=== PATIENT | male | born 1945 | race Caucasian/White ===

== ENCOUNTER → 2016-06-27 | Outpatient (CLI) | payer MEDICARE, OTHER | LOC: GMAL 10:35 | PROVIDERS: ATTEND Family Medicine | DX: Z12.5 Encounter for screening for malignant neoplasm of prostate (principal) ==

== ENCOUNTER → 2016-07-30 | Outpatient (CLI) | payer MEDICARE, OTHER ==
--- NOTE | 2016-07-31 14:25 | MRI ---
EXAM DESCRIPTION: Lumbar Spine w/o Contrast CLINICAL HISTORY: LOW BACK PAIN. Pain radiates into left leg. COMPARISON: MRI lumbar spine 09/14/2014 TECHNIQUE: MRI of the lumbar spine is performed according to our usual protocol with axial and sagittal multi sequence imaging. FINDINGS: The designated L5-S1 disc space is on axial T2 image 3. Again demonstrated is bilateral L5 spondylolysis with grade 1 spondylolisthesis of L5 on S1. There is up to 8 mm of anterior displacement of L5 on S1, similar to the prior exam. Vertebral body stature is maintained. There is no acute fracture or destructive osseous lesion. The conus medullaris terminates normally. There are numerous bilateral renal cysts. The spleen is enlarged up to 14 cm. A few incompletely imaged T2 hypointensities measuring 1 cm or less are present. L1-2: Disc desiccation. Otherwise no significant findings. L2-3: Disc desiccation. Mild facet hypertrophy. 2 mm posterior disc bulge. No spinal canal or neural foraminal stenosis. L3-4: Disc desiccation. Disc height is preserved. Mild facet hypertrophy with ligamentum flavum thickening. 2 mm posterior disc bulge with mild bilateral neural foraminal stenosis. The spinal canal is patent. L4-5: Disc desiccation. Disc height is preserved. Mild to moderate facet hypertrophy. 2 mm posterior disc bulge with minimal bilateral neural foraminal stenosis. The spinal canal is patent. L5-S1: Disc desiccation with severe disc narrowing. Moderate to severe facet hypertrophy. Anterolisthesis with uncovering and posterior bulging of the disc with osteophytic ridging of the endplates up to 8 mm. Severe bilateral neural foraminal stenosis. The spinal canal is patent. IMPRESSION: 1. Grossly stable disc degeneration and facet degenerative changes in the lumbar spine as described above. The findings remain most pronounced at L5-S1 where there is grade 1 spondylolisthesis with severe bilateral neural foraminal stenosis. 2. Other levels as detailed above. 3. Splenomegaly with indeterminate relative T2 hypointensities in the spleen which are incompletely evaluated. Further evaluation with ultrasound or CT with IV contrast recommended. Electronically signed by: Dustin Monroe MD 07/31/2016 2:25 PM CDT
== END | disposition home or self-care (01) ==
LOC: MRI 13:00
PROVIDERS: ATTEND Family Medicine
DX: M54.5 Low back pain (principal); M47.896 Other spondylosis, lumbar region

== ENCOUNTER 2016-08-23 12:28 | Emergency (ER) | payer MEDICARE, OTHER ==
[2016-08-23 12:54] VITALS: BP 127/73; TEMP 97.6; O2SAT 98
--- NOTE | 2016-08-23 13:32 | ED.PDOC ---
History of Present Illness - General Chief Complaint: General Stated Complaint: Rash to right arm Time Seen by Provider: 08/23/16 13:16 Source: patient, RN notes reviewed, Vital Signs reviewed Exam Limitations: no limitations - History of Present Illness Initial Comments: HE PRESENTS TO THE ED WITH A DERMATITIS THAT HAS BEEN WITH HIM FOR TWO-THREE WEEKS. EVIDENTLY HE SUSTAINED AN ACCIDENTAL PUNCTURE WOUND WITH A NAIL TO THE ANTERIOR ASPECT OF THE RIGHT FOREARM AND SINCE THEN HE HAS TWO ROUND LESIONS. HE HAS CAD AND AF AND ON ELIQUIS. HE ALSO HAS A CENTRAL SCAB THAT HE REMOVES PERIODICALLY. Improving Factors: nothing Worsening Factors: nothing Associated Symptoms: denies symptoms Allergies/Adverse Reactions: Allergies NO KNOWN ALLERGY Allergy (Verified 05/07/15 11:46) Home Medications: Ambulatory Orders Aspirin [Baby Aspirin] 81 mg PO DAILY 09/01/14 Coreg PO BID 09/01/14 Glipizide PO BID 09/01/14 Metformin HCl 1,000 mg PO DAILY 09/01/14 Metformin HCl 500 mg PO BEDTIME 09/01/14 Apixaban [Eliquis] 5 mg PO BID 05/07/15 Cephalexin Monohydrate [Keflex] 500 mg PO Q8HRS #20 cap 05/07/15 Cephalexin Monohydrate [Keflex] 500 mg PO TID #30 cap 08/23/16 Clotrimazole/Betamethasone Cre [Lotrisone Cream] 15 gm TOP BID #30 tube Review of Systems - Review of Systems Constitutional: States: no symptoms reported EENTM: States: no symptoms reported Respiratory: Denies: cough, orthopnea, short of breath Cardiology: Denies: chest pain, edema, palpitations Gastrointestinal/Abdominal: States: no symptoms reported Musculoskeletal: States: no symptoms reported Skin: States: change in color, lesions Neurological: States: no symptoms reported Endocrine: States: no symptoms reported Hematologic/Lymphatic: States: no symptoms reported Past Medical History (General) - Patient Medical History Hx Stroke: No Hx Cardiac Disorders: Yes - CAD, BYPASS, AF Hx Congestive Heart Failure: No Hx Hypertension: Yes Hx Diabetes: Yes Hx Gastroesophageal Reflux: Yes Hx MRSA: No - Vaccination History Hx Tetanus, Diphtheria Vaccination: Yes Hx Influenza Vaccination: Yes Hx Pneumococcal Vaccination: Yes - Social History Hx Tobacco Use: No Hx Alcohol Use: No Hx Substance Use: No Hx Substance Use Treatment: No Hx Depression: No Family Medical History - Family History Mother Living Status: Hx Family Stroke: Yes Physical Exam - Physical Exam General Appearance: Alert, Well Developed Eye Exam: bilateral normal Ears, Nose, Throat: hearing grossly normal Neck: non-tender, full range of motion, supple, normal inspection Respiratory: chest non-tender, lungs clear, normal breath sounds, no respiratory distress, no accessory muscle use Cardiovascular/Chest: normal peripheral pulses, regular rate, rhythm, no edema, no gallop, no JVD, no murmur Peripheral Pulses: radial,right: 2+, radial,left: 2+ Gastrointestinal/Abdominal: normal bowel sounds, non tender, no organomegaly Neurologic: no motor/sensory deficits, alert, normal mood/affect, oriented x 3 Skin Exam: warm/dry, other - THE UPPEREXTREMITIES WITH MULTIPLE BRUISING FROM THE ELIQUIS. ALSO HE HAS TWO LESIONS ON THE ANTERIOR ASPECT OF THE RIGHT FOREARM WITH A CENTRAL SCAB AND CIRCUMFERENTIAL REDNESS AND THEN HAS DARK BORDERS. ONE MEASURES 5 CM AND THE OTHER ONE IS THREE CM. Lymphatic: no adenopathy Departure - Departure Clinical Impression: Dermatitis Cellulitis Qualifiers: Site of cellulitis of extremity: upper extremity Laterality: right Time of Disposition: 13:39 Disposition: Discharge to Home or Self Care Departure Forms: ED Discharge - Pt. Copy, Patient Portal Self Enrollment Diet: resume usual diet Referrals: Taras Lentz III, MD [Primary Care Provider] - 1-2 Weeks Prescriptions: Cephalexin Monohydrate [Keflex] 500 mg PO TID #30 cap Clotrimazole/Betamethasone Cre [Lotrisone Cream] 15 gm TOP BID #30 tube Home Medications: Ambulatory Orders Aspirin [Baby Aspirin] 81 mg PO DAILY 09/01/14 Coreg PO BID 09/01/14 Glipizide PO BID 09/01/14 Metformin HCl 1,000 mg PO DAILY 09/01/14 Metformin HCl 500 mg PO BEDTIME 09/01/14 Apixaban [Eliquis] 5 mg PO BID 05/07/15 Cephalexin Monohydrate [Keflex] 500 mg PO Q8HRS #20 cap 05/07/15 Cephalexin Monohydrate [Keflex] 500 mg PO TID #30 cap 08/23/16 Clotrimazole/Betamethasone Cre [Lotrisone Cream] 15 gm TOP BID #30 tube
== END 2016-08-23 13:52 | disposition home or self-care (01) ==
LOC: ER 12:28
DX: L30.9 Dermatitis, unspecified (principal); L03.113 Cellulitis of right upper limb; I10 Essential (primary) hypertension; E11.9 Type 2 diabetes mellitus without complications; K21.9 Gastro-esophageal reflux disease without esophagitis; I25.10 Atherosclerotic heart disease of native coronary artery without angina pectoris; Z95.1 Presence of aortocoronary bypass graft; Z79.82 Long term (current) use of aspirin; Z79.899 Other long term (current) drug therapy; Z79.01 Long term (current) use of anticoagulants

== ENCOUNTER 2016-09-10 13:24 | Day surgery (SDC) | payer MEDICARE, OTHER ==
[2016-09-10] MEDS ORDERED: SODIUM CHLORIDE 0.9% 10 ML VIAL ONE (14:30)
[2016-09-10] MEDS: LIDOCAINE 1% MPF 5 ML VIAL ONE ×2 (14:42→14:43)
[2016-09-10] MEDS ORDERED: methylPREDNISolone ACETATE 80 MG/ML VIAL INJ ONE (14:43)
[2016-09-10 15:04] VITALS: BP 158/86; TEMP 97.4; O2SAT 98
== END 2016-09-10 14:55 | disposition home or self-care (01) ==
LOC: AMB 13:24 → EDSTATUS 15:15
PROVIDERS: ATTEND Anesthesiology Pain Medicine
DX: M51.16 Intervertebral disc disorders with radiculopathy, lumbar region (principal); Z79.891 Long term (current) use of opiate analgesic; Z79.84 Long term (current) use of oral hypoglycemic drugs; Z79.899 Other long term (current) drug therapy; Z79.82 Long term (current) use of aspirin
CPT/HCPCS: 62323; 76000; 80307; 80354; 80358; 80365; J1030

== ENCOUNTER → 2016-11-29 | Outpatient (CLI) | payer MEDICARE, OTHER | END | disposition home or self-care (01) | LOC: GMAL 10:51 | PROVIDERS: ATTEND Family Medicine | DX: E55.9 Vitamin D deficiency, unspecified (principal) ==

== ENCOUNTER → 2017-02-25 | Outpatient (CLI) | payer MEDICARE, OTHER | END | disposition home or self-care (01) | LOC: GMAL 11:30 | PROVIDERS: ATTEND Family Medicine | DX: E55.9 Vitamin D deficiency, unspecified (principal) ==

== ENCOUNTER → 2017-03-04 | Outpatient (CLI) | payer MEDICARE, OTHER ==
--- NOTE | 2017-03-05 08:26 | US ---
EXAM DESCRIPTION: Abdomen,Complete CLINICAL HISTORY: Splenomegaly. Splenic lesions on prior MRI. COMPARISON: MRI lumbar spine 07/30/2016 TECHNIQUE: Complete abdominal ultrasound FINDINGS: The liver is at the upper limits of normal in size at 15.1 cm. It demonstrates increased echogenicity. There is no focal hepatic mass. The gallbladder contains no sludge, calculus, or polyps. The gallbladder wall measures 2 mm. The common bile duct measures 5 mm. Visualized portions of the pancreas are unremarkable. The spleen is mildly enlarged at 14.6 cm. It demonstrates multiple hyperechoic foci measuring up to 1 cm with posterior acoustic shadowing, consistent with calcified granulomas. 2.2 cm left renal cyst. The kidneys are otherwise normal in size, shape, and echotexture. The IVC and the proximal aorta are unremarkable. IMPRESSION: 1. Mild splenomegaly with multiple calcified splenic granulomas. 2. Hepatic steatosis. Electronically signed by: Dustin Monroe MD 03/05/2017 8:25 AM [employer]
== END | disposition home or self-care (01) ==
LOC: US 10:13
PROVIDERS: ATTEND Family Medicine
DX: R16.1 Splenomegaly, not elsewhere classified (principal)

== ENCOUNTER → 2017-06-14 | Outpatient (CLI) | payer MEDICARE, OTHER ==
--- NOTE | 2017-06-17 08:08 | MRI ---
EXAM DESCRIPTION: Lumbar Spine w/o Contrast MRI. CLINICAL HISTORY: RADICULOPATHY COMPARISON: MRI lumbar spine 07/30/2016. TECHNIQUE: Multiplanar, multiple standard sequences, non contrast MRI, lumbar spine. FINDINGS: L5-S1: Marked disc space loss with diffuse Modic type II endplate reactive changes and grade 1-2 anterolisthesis. Posterior disc is partially uncovered. Mild canal narrowing. Minimal facet arthrosis and ligament hypertrophy. Bilateral L5 pars spondylolysis. Bilateral foraminal stenosis and impingement of the exiting L5 nerves more left than right. No significant change since the prior study. L4-5: Minimal disc desiccation with disc space maintained. Bilateral moderate foraminal narrowing. Posterior elements are unremarkable. Canal is patent. Stable since the prior study. L3-4: Minimal disc desiccation and disc space loss. No significant bulging into the canal. Minimal bulging into the bilateral foramina which are moderately narrowed more on the right than the left. Minimal flavum ligament hypertrophy. Facets are negative. Mild canal narrowing. Stable since the prior study. L2-3: Minimal disc desiccation. Disc space preserved. Anterior bulging. No posterior bulging. Minimal hypertrophy of the flavum ligaments abutting the thecal sac. Facets are unremarkable. Mild canal narrowing. Mild bilateral foraminal narrowing more left than right. No change since the prior study. L1-2: Minimal disc desiccation. Disc space preserved. Posterior elements unremarkable. Canal patent, mild narrowing of the bilateral foramina. Stable since the prior study. T12-L1: Normal signal in the disc with disc space unremarkable and no bulging. Posterior elements unremarkable. Canal and bilateral foramina are patent. No change since the prior study. No significant scoliosis. Paravertebral soft tissues unremarkable. Bilateral renal cysts also seen on the prior studies.. Normal marrow signal in the remaining vertebral bodies and the posterior elements. Vertebral bodies are not compressed at any level. IMPRESSION: 1. Grade 1, almost grade 2 anterolisthesis at L5-S1 with marked disc space loss and desiccation. Diffuse moderate endplate spondylosis. Bilateral foraminal stenosis and impingement of the bilateral L5 nerves. Bilateral L5 spondylolysis. Stable since the prior study. 2. No significant disc bulging at other levels. Moderate bilateral foraminal narrowing at L3-4 and L4-5 which is stable since the prior study. Minimal flavum ligament hypertrophy at some levels. 3. Bilateral renal cysts were also seen on the prior study. Electronically signed by: Kieran Hanna MD 06/17/2017 8:06 AM CDT
== END ==
LOC: MRI 09:00
PROVIDERS: ATTEND Family Medicine
DX: M54.16 Radiculopathy, lumbar region (principal); M43.17 Spondylolisthesis, lumbosacral region

== ENCOUNTER → 2017-10-16 | Outpatient (CLI) | payer MEDICARE, OTHER | LOC: GMAL 11:29 | PROVIDERS: ATTEND Family Medicine | DX: D51.3 Other dietary vitamin B12 deficiency anemia (principal); E03.8 Other specified hypothyroidism; E55.9 Vitamin D deficiency, unspecified; Z12.5 Encounter for screening for malignant neoplasm of prostate | CPT/HCPCS: 82306; 82607; 84439; 84443; 84481; G0103 ==

== ENCOUNTER → 2017-12-11 | Outpatient (CLI) | payer MEDICARE, OTHER ==
--- NOTE | 2017-12-11 13:20 | CT ---
EXAM DESCRIPTION: CTA Neck CLINICAL HISTORY: 72 years, Male, STENOSIS COMPARISON: None TECHNIQUE: CTA of the neck was performed with IV contrast including 3D reformatted images. This exam was performed according to our departmental dose-optimization program, which includes automated exposure control, adjustment of the mA and/or kV according to patient size and/or use of iterative reconstruction technique. FINDINGS: All diameter measurements and percent stenosis values in this report are based on NASCET criteria. Postoperative changes in the mediastinum are partially visualized. Mural calcifications are noted in the aortic arch without apparent aneurysm or dissection. The innominate and visualized portions of the subclavian arteries are unremarkable. There is calcified plaque in both carotid bifurcations extending into the proximal ICAs resulting in approximately 70% left-sided ICA stenosis and 30% right-sided ICA stenosis. More distal portions of the internal carotid arteries are unremarkable bilaterally. Mural calcifications are noted in the distal vertebral arteries bilaterally resulting in approximately 80% stenosis of the bilateral vertebral arteries. Emphysematous changes are noted in the lung apices. No thyroid nodule. No cervical adenopathy. Degenerative disc disease is noted at C5-6 and C6-7 with posterior osteophytic ridging at C5-6 resulting in mild central canal and moderate bilateral neuroforaminal stenosis. IMPRESSION: Calcified plaque in both carotid bifurcations extending into the proximal internal carotid arteries resulting in 70% left ICA stenosis in 30% right ICA stenosis. Calcification in the distal vertebral arteries resulting in approximately 80% bilateral vertebral artery stenosis. Emphysema. Degenerative disc disease at C5-6 and C6-7, worse at C5-6 including mild central canal and moderate bilateral neuroforaminal stenosis. Electronically signed by: Adam Roach MD 12/11/2017 1:18 PM CDT
== END ==
LOC: LAB.O 08:19
PROVIDERS: ATTEND Family Medicine
DX: I65.29 Occlusion and stenosis of unspecified carotid artery (principal); I10 Essential (primary) hypertension; J43.9 Emphysema, unspecified; M50.922 Unspecified cervical disc disorder at C5-C6 level; M50.923 Unspecified cervical disc disorder at C6-C7 level

== ENCOUNTER → 2018-11-24 | Outpatient (CLI) | payer MEDICARE | LOC: GMAL 15:06 | PROVIDERS: ATTEND Family Medicine | DX: Z12.5 Encounter for screening for malignant neoplasm of prostate (principal) ==

== ENCOUNTER → 2019-03-24 | Outpatient (CLI) | payer MEDICARE | LOC: GMAL 10:39 | PROVIDERS: ATTEND Family Medicine | DX: D51.3 Other dietary vitamin B12 deficiency anemia (principal); E03.8 Other specified hypothyroidism; E55.9 Vitamin D deficiency, unspecified; N18.2 Chronic kidney disease, stage 2 (mild); I10 Essential (primary) hypertension; E11.9 Type 2 diabetes mellitus without complications ==

== ENCOUNTER → 2019-04-30 | Outpatient (CLI) | payer MEDICARE ==
--- NOTE | 2019-05-01 17:06 | CT ---
EXAM DESCRIPTION: Abdoment/Pelvis w/o Contrast: Computed Tomography. CLINICAL HISTORY: 73 years Male Generalized abdominal pain COMPARISON: Ultrasound abdomen February 2017. TECHNIQUE: Spiral-axial scans 2.5 mm intervals through the abdomen and pelvis without oral or IV contrast. Coronal and sagittal 2.0 mm reconstructions. Total Exam DLP: 1102 mGy-cm. This exam was performed according to our departmental CT dose-optimization program which includes automated exposure control, adjustment of the mA and/or kV according to patient size and/or use of iterative reconstruction technique; to reduce radiation dose to as low as reasonably achievable (ALARA). FINDINGS: Lung bases and pleura: Pleural parenchymal scarring inferior lingula and bilateral lower lobes. More abutting the left diaphragm. Cardiomegaly and coronary artery calcifications. Liver, stomach, spleen, and adrenal glands: Long axis right hepatic lobe 17.3 cm. Minimal fatty density. Numerous calcifications in the spleen. 17 cm anteroposterior. Stomach mildly distended with fluid and gas. Adrenals are negative. Pancreas, Gallbladder, and Ducts: Gallbladder visualized. Common bile duct normal caliber. Pancreas negative. Kidneys and Ureters: Vascular calcifications in the kidneys. Circumscribed low-density masses in the bilateral kidneys with Hounsfield density less than 10. Largest cyst right kidney extends from the cortex to the fatty renal hilum. Mesentery: Unremarkable. Aorta: Diffuse atherosclerotic calcifications including the bilateral common iliac arteries which are heavily calcified. Possibly significant narrowing in these vessels. No dilation of the outer wall. Small Bowel: Normal caliber. Terminal Ileum/Cecum: Normal caliber including the appendix. No inflammatory changes. Colon: Minimal fecal and gas throughout. Minimal redundancy in the sigmoid colon with moderate fecal matter proximally but no complications. Pelvic Organs: Prostate gland abutting the base of the urinary bladder and seminal vesicles 4.6 x 2.6 cm transverse. No radiodense stones in the bladder. Spine and Bony Pelvis: Advanced spondylosis and significant disc space loss with grade 1 anterolisthesis at L5-S1. Bilateral neural foraminal stenosis. Bilateral L5 pars spondylolysis. Bilateral hip joint space narrowing. Minimal arthrosis bilateral SI joints. Abdominal Wall/Back Soft Tissues: Minimal bilateral fatty inguinal hernias larger on the left with no bowel. IMPRESSION: No free air or free fluid. No mass in the peritoneum or retroperitoneum. Steatosis of the liver with mild hepatomegaly. Constipation in the sigmoid:. No bowel obstruction. Cardiomegaly and coronary artery calcifications. Bilateral renal cysts. Electronically signed by: Kieran Hanna MD 05/01/2019 5:04 PM [employer]
== END ==
LOC: GMAL 10:46
PROVIDERS: ATTEND Family Medicine
DX: K59.00 Constipation, unspecified (principal); K76.0 Fatty (change of) liver, not elsewhere classified; I51.7 Cardiomegaly; I25.10 Atherosclerotic heart disease of native coronary artery without angina pectoris; N28.1 Cyst of kidney, acquired; N39.0 Urinary tract infection, site not specified; M25.50 Pain in unspecified joint; Z79.899 Other long term (current) drug therapy

== ENCOUNTER → 2019-07-02 | Outpatient (CLI) | payer MEDICARE | LOC: GMAL 11:35 | PROVIDERS: ATTEND Family Medicine | DX: M10.071 Idiopathic gout, right ankle and foot (principal); E11.9 Type 2 diabetes mellitus without complications; I10 Essential (primary) hypertension; E78.49 Other hyperlipidemia ==

== ENCOUNTER → 2020-02-16 | Outpatient (CLI) | payer MEDICARE | LOC: GMAL 11:18 | PROVIDERS: ATTEND Family Medicine | DX: E11.9 Type 2 diabetes mellitus without complications (principal); E78.49 Other hyperlipidemia; M10.00 Idiopathic gout, unspecified site; Z79.899 Other long term (current) drug therapy ==

== ENCOUNTER 2020-02-17 16:45 | Emergency (ER) | payer MEDICARE, OTHER ==
[2020-02-17] MEDS ORDERED: SODIUM CHLORIDE 0.9% 1000ML 1,000 ML IVS ONE (18:28)
[2020-02-17] MEDS ORDERED: DEXAMETHASONE 4 MG TAB PO ONE (19:11)
[2020-02-17] MEDS ORDERED: AZITHROMYCIN 250 MG TAB PO ONE (19:11)
[2020-02-17] MEDS ORDERED: ACETAMINOPHEN 325 MG TAB PO ONE (19:13)
--- NOTE | 2020-02-17 19:15 | ED.PDOC ---
History of Present Illness - General Chief Complaint: General Stated Complaint: "out of sorts" Time Seen by Provider: 02/17/20 16:50 Source: patient Exam Limitations: no limitations - History of Present Illness Initial Comments: Patient is a 74-year-old male presents emergency room secondary to feeling poorly in general. He has some fatigue and dizziness and reports some mild confusion. He does have a headache. He has had a mild cough and a mild runny nose. No nausea vomiting or diarrhea. No syncope or falls. No focal neurological changes. Timing/Duration: other - 48 hours Severity: moderate Improving Factors: nothing Worsening Factors: nothing Associated Symptoms: cough, headaches, loss of appetite, malaise, weakness - Generalized Allergies/Adverse Reactions: Allergies NO KNOWN ALLERGY Allergy (Verified 05/07/15 11:46) Home Medications: Ambulatory Orders Aspirin [Baby Aspirin] 81 mg PO DAILY 09/01/14 Metformin HCl [Metformin Hydrochloride] 500 mg PO BID 09/01/14 Apixaban [Eliquis] 5 mg PO BID 05/07/15 Allopurinol [Zyloprim] 100 mg PO DAILY 02/17/20 Azithromycin 500 mg PO DAILY #5 tab 02/17/20 Empagliflozin [Jardiance] 25 mg PO DAILY 02/17/20 Oxybutynin Chloride 5 mg PO DAILY 02/17/20 Pravastatin Sodium 40 mg PO DAILY 02/17/20 Tamsulosin HCl [Flomax] 0.4 mg PO DAILY 02/17/20 predniSONE [Prednisone] 20 mg PO DAILY #5 tab 02/17/20 Review of Systems - Review of Systems Constitutional: States: malaise, weakness - Generalized EENTM: States: nose congestion Respiratory: States: cough Cardiology: States: no symptoms reported Gastrointestinal/Abdominal: States: no symptoms reported Genitourinary: States: no symptoms reported Musculoskeletal: States: no symptoms reported Skin: States: no symptoms reported Neurological: States: headache Endocrine: States: no symptoms reported Hematologic/Lymphatic: States: no symptoms reported All other Systems: No Change from Baseline Past Medical History (General) - Patient Medical History Hx Stroke: No Hx Cardiac Disorders: Yes - CAD, BYPASS, AF Hx Congestive Heart Failure: No Hx Hypertension: Yes Hx Diabetes: Yes Hx Gastroesophageal Reflux: Yes Hx MRSA: No - Vaccination History Hx Tetanus, Diphtheria Vaccination: Yes Hx Influenza Vaccination: Yes Hx Pneumococcal Vaccination: Yes - Social History Hx Tobacco Use: No Hx Alcohol Use: No Hx Substance Use: No Hx Substance Use Treatment: No Hx Depression: No Family Medical History - Family History Mother Living Status: Hx Family Stroke: Yes Physical Exam - Physical Exam General Appearance: Alert, Frail, Ill Appearing Eye Exam: bilateral normal Ears, Nose, Throat: hearing grossly normal, nasal congestion Neck: full range of motion, supple Respiratory: no respiratory distress, no accessory muscle use, rhonchi - Very mild scattered Cardiovascular/Chest: normal peripheral pulses, no edema, other - Regular rate Peripheral Pulses: radial,right: 2+, radial,left: 2+ Gastrointestinal/Abdominal: non tender, soft Rectal Exam: deferred Back Exam: no CVA tenderness, no vertebral tenderness Extremity: normal range of motion, non-tender, normal inspection, no pedal edema, normal capillary refill 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 The patient is technically alert and oriented x3. No focal neurological changes that are obviously new. Skin Exam: normal color Comments: Vital Signs - 24 hr 02/17/20 02/17/20 02/17/20 16:52 17:38 17:39 Temperature 98.2 F Pulse Rate [ 80 66 71 left brachial] Respiratory 20 20 18 Rate Blood Pressure 171/99 165/85 160/79 [left brachial] O2 Sat by Pulse 96 94 L 97 Oximetry 02/17/20 02/17/20 17:40 18:00 Temperature 98.1 F Pulse Rate [ 74 59 L left brachial] Respiratory 20 20 Rate Blood Pressure 169/92 169/86 [left brachial] O2 Sat by Pulse 97 95 Oximetry Progress - Progress Progress: 02/17/20 19:17 The patient is a 74-year-old male presented to emergency room secondary to feeling poorly due to what appears to be an acute COVID-19 infecti on. Pulmonary symptoms appear to be minimal at this point however the patient is a diabetic and elderly and thus at high risk of deterioration. He will receive the monoclonal antibody infusion. He is also going to be placed on low- dose prednisone and azithromycin for the next week. He does need to follow his blood sugars closely and keep himself well-hydrated. No evidence of hypoxia or respiratory distress. The patient needs to follow back up with his primary care doctor within a week at least by phone. ER warnings are given. He obviously needs to isolate. [email or web address] bruno [id number] - Results/Orders Results/Orders: 02/17/20 16:58 Telemetry .CONTINUOUS Vital Signs-Tilt PRN Chest,1 View [RAD] Stat 02/17/20 17:00 EKG STAT 02/17/20 17:10 PSA,TOTAL MCR SCREEN Stat EKG shows atrial fibrillation at a rate controlled at 70 bpm. Q waves in inferior leads. Criteria for LVH is present. Normal QT interval. Mildly widened QRS complex. Difficult to interpret otherwise. No definitive ST segment elevation or marked depression. Nonspecific T wave changes. Laboratory Results - last 24 hr 02/17/20 02/17/20 02/17/20 17:10 17:10 17:10 WBC 4.8 RBC 5.11 Hgb 15.9 Hct 45.4 MCV 88.9 MCH 31.2 H MCHC 35.1 RDW 13.7 Plt Count 95 L MPV 8.1 Absolute Neuts (auto) 3.90 Absolute Lymphs (auto) 0.50 L Absolute Monos (auto) 0.30 Absolute Eos (auto) 0.00 Absolute Basos (auto) 0.00 Neutrophils % 82.1 H Lymphocytes % 10.8 L Monocytes % 7.0 Eosinophils % 0.0 L Basophils % 0.1 PT 10.6 INR 1.07 PTT (SP) 34.7 H D-Dimer, Quantitative 293.0 Sodium 134 L Potassium 3.6 Chloride 99 L Carbon Dioxide 21 Anion Gap 17.6 BUN 21 H Creatinine 1.18 BUN/Creatinine Ratio 17.8 Random Glucose 163 H Serum Osmolality 274.8 L Lactic Acid Calcium 8.2 L Magnesium 1.8 Total Bilirubin 1.2 H AST 25 ALT 26 Alkaline Phosphatase 69 Creatine Kinase 35 L CK-MB (CK-2) 0.6 CK-MB (CK-2) % Not Reportable Troponin I 0.03 B-Natriuretic Peptide 287.0 H* Serum Total Protein 8.2 Albumin 4.3 Globulin 3.9 H Albumin/Globulin Ratio 1.1 Amylase 53 TSH 1.54 Urine Color Urine Appearance Urine pH Ur Specific Cisne Urine Protein Urine Glucose (UA) Urine Ketones Urine Blood Urine Nitrite Urine Bilirubin Urine Urobilinogen Ur Leukocyte Esterase Urine RBC Urine WBC Ur Epithelial Cells Urine Bacteria 02/17/20 02/17/20 17:10 17:43 WBC RBC Hgb Hct MCV MCH MCHC RDW Plt Count MPV Absolute Neuts (auto) Absolute Lymphs (auto) Absolute Monos (auto) Absolute Eos (auto) Absolute Basos (auto) Neutrophils % Lymphocytes % Monocytes % Eosinophils % Basophils % PT INR PTT (SP) D-Dimer, Quantitative Sodium Potassium Chloride Carbon Dioxide Anion Gap BUN Creatinine BUN/Creatinine Ratio Random Glucose Serum Osmolality Lactic Acid 1.3 Calcium Magnesium Total Bilirubin AST ALT Alkaline Phosphatase Creatine Kinase CK-MB (CK-2) CK-MB (CK-2) % Troponin I B-Natriuretic Peptide Serum Total Protein Albumin Globulin Albumin/Globulin Ratio Amylase TSH Urine Color Yellow Urine Appearance Clear Urine pH 5.0 Ur Specific Cisne 1.025 Urine Protein 100 H Urine Glucose (UA) >=1000 H Urine Ketones 40 H Urine Blood Small H Urine Nitrite Negative Urine Bilirubin Negative Urine Urobilinogen 0.2 Ur Leukocyte Esterase Negative Urine RBC 0-1 Urine WBC 0-1 Ur Epithelial Cells 0-1 Urine Bacteria Rare Chest x-ray shows no acute pathology. Departure - Departure Clinical Impression: COVID-19 virus infection Disposition: Discharge to Home or Self Care Condition: Fair Departure Forms: ED Discharge - Pt. Copy, Patient Portal Self Enrollment Instructions: Coronavirus Disease 2019 (COVID-19) Diet: diabetic diet Activity: increase activity as tolerated Referrals: Taras Lentz III, MD [Primary Care Provider] - 1-2 Weeks Prescriptions: Azithromycin 500 mg PO DAILY #5 tab predniSONE [Prednisone] 20 mg PO DAILY #5 tab Home Medications: Ambulatory Orders Aspirin [Baby Aspirin] 81 mg PO DAILY 09/01/14 Metformin HCl [Metformin Hydrochloride] 500 mg PO BID 09/01/14 Apixaban [Eliquis] 5 mg PO BID 05/07/15 Allopurinol [Zyloprim] 100 mg PO DAILY 02/17/20 Azithromycin 500 mg PO DAILY #5 tab 02/17/20 Empagliflozin [Jardiance] 25 mg PO DAILY 02/17/20 Oxybutynin Chloride 5 mg PO DAILY 02/17/20 Pravastatin Sodium 40 mg PO DAILY 02/17/20 Tamsulosin HCl [Flomax] 0.4 mg PO DAILY 02/17/20 predniSONE [Prednisone] 20 mg PO DAILY #5 tab 02/17/20 Additional Instructions: The patient is a 74-year-old male presented to emergency room secondary to feeling poorly due to what appears to be an acute COVID-19 infection. Pulmonary symptoms appear to be minimal at this point however the patient is a diabetic and elderly and thus at high risk of deterioration. He will receive the monoclonal antibody infusion. He is also going to be placed on low-dose prednisone and azithromycin for the next week. He does need to follow his blood sugars closely and keep himself well-hydrated. No evidence of hypoxia or respiratory distress. The patient needs to follow back up with his primary care doctor within a week at least by phone. ER warnings are given. He obviously needs to isolate.
[2020-02-17] MEDS ORDERED: SODIUM CHLORIDE 0.9% 250ML 250 ML ONE (19:28)
[2020-02-17 21:45] VITALS: O2SAT 96
[2020-02-17 21:48] VITALS: BP 155/83; TEMP 98.2
--- NOTE | 2020-02-17 22:08 | RAD ---
EXAM: XR Chest, 1 View CLINICAL HISTORY: The patient is 74 years old and is Male; weakness TECHNIQUE: Single view of the chest. COMPARISON: No relevant prior studies available. FINDINGS: Lungs: Unremarkable. No consolidation. Pleural space: Unremarkable. No pneumothorax. Heart: Cardiomegaly. Mediastinum: Unremarkable. Bones/joints: Sternal closure wires. No acute rib fracture visualized. Upper abdomen: No free air in the visualized upper abdomen. IMPRESSION: No acute cardiopulmonary process identified. Electronically signed by: Teri Montero MD 02/17/2020 5:46 PM PROFESSIONAL ENGINEER
== END 2020-02-17 21:45 | disposition home or self-care (01) ==
LOC: ER 16:45
DX: U07.1 COVID-19 (principal); R41.0 Disorientation, unspecified; I48.91 Unspecified atrial fibrillation; E11.9 Type 2 diabetes mellitus without complications; I25.10 Atherosclerotic heart disease of native coronary artery without angina pectoris; I10 Essential (primary) hypertension; K21.9 Gastro-esophageal reflux disease without esophagitis; Z95.1 Presence of aortocoronary bypass graft; Z79.899 Other long term (current) drug therapy; Z79.82 Long term (current) use of aspirin; Z79.84 Long term (current) use of oral hypoglycemic drugs
CPT/HCPCS: 36415; 71045; 80053; 81001; 82150; 82550; 82553; 83605; 83735; 83880; 84443; 84484; 85025; 85379; 85610; 85730; 87040; 87486; 87581; 87633; 87635; 93005; G0103; J7030; J7050; J8540; Q0144

== ENCOUNTER 2020-02-24 10:29 | Emergency (ER) | payer MEDICARE, OTHER ==
[2020-02-24] MEDS ORDERED: ALBUTEROL INHALER 64 PUFF/8GM INH PRN (11:14)
[2020-02-24] MEDS ORDERED: BENZONATATE PERLES 100 MG CAP PO ONE (11:15)
--- NOTE | 2020-02-24 11:21 | ED.PDOC ---
History of Present Illness - General Chief Complaint: General Stated Complaint: COVID + Time Seen by Provider: 02/24/20 11:11 Source: patient Exam Limitations: other - PATIENT IS POOR HISTORIAN - History of Present Illness Comments: PATIENT PRESENTS WITH 1 WEEK HISTORY OF SYMPTOMATIC COVID-19, HE STATES HE CAME TO ER BECAUSE HE'S NOT FEELING BETTER YET AND NOW HAS A COUGH, DENIES SOB, DOES NOT HAVE HOME PULSE OXIMETER OR O2. PMHX OF DM AND HTN AND RECEIVED THE MONOCLONAL ANTIBODY TREATMENT 1 WEEK AGO AND WAS PLACED ON PREDNISONE AND ZITHROMAX. Cough Quality/Degree: productive cough, sputum Possible Cause: no prior episodes Improving Factors: nothing Worsening Factors: nothing Associated Symptoms: cough, fever/chills, muscle aches, nasal congestion Allergies/Adverse Reactions: Allergies NO KNOWN ALLERGY Allergy (Verified 05/07/15 11:46) Home Medications: Ambulatory Orders Aspirin [Baby Aspirin] 81 mg PO DAILY 09/01/14 Metformin HCl [Metformin Hydrochloride] 500 mg PO BID 09/01/14 Apixaban [Eliquis] 5 mg PO BID 05/07/15 Allopurinol [Zyloprim] 100 mg PO DAILY 02/17/20 Azithromycin 500 mg PO DAILY #5 tab 02/17/20 Empagliflozin [Jardiance] 25 mg PO DAILY 02/17/20 Oxybutynin Chloride 5 mg PO DAILY 02/17/20 Pravastatin Sodium 40 mg PO DAILY 02/17/20 Tamsulosin HCl [Flomax] 0.4 mg PO DAILY 02/17/20 predniSONE [Prednisone] 20 mg PO DAILY #5 tab 02/17/20 Benzonatate Perles [Tessalon Perles] 200 mg PO TID PRN #15 cap 02/24/20 Review of Systems - Review of Systems Constitutional: States: see HPI, chills, fever, malaise, weakness EENTM: States: see HPI, nose congestion, throat pain Respiratory: States: see HPI, cough, wheezing Cardiology: States: no symptoms reported Gastrointestinal/Abdominal: States: no symptoms reported Genitourinary: States: no symptoms reported Musculoskeletal: States: no symptoms reported Skin: States: no symptoms reported Neurological: States: no symptoms reported Endocrine: States: no symptoms reported Hematologic/Lymphatic: States: no symptoms reported Past Medical History (General) - Patient Medical History Hx Stroke: No Hx Cardiac Disorders: Yes - CAD, BYPASS, AF Hx Congestive Heart Failure: No Hx Hypertension: Yes Hx Diabetes: Yes Hx Gastroesophageal Reflux: Yes Hx MRSA: No - Vaccination History Hx Tetanus, Diphtheria Vaccination: Yes Hx Influenza Vaccination: Yes Hx Pneumococcal Vaccination: Yes - Social History Hx Tobacco Use: No Hx Alcohol Use: No Hx Substance Use: No Hx Substance Use Treatment: No Hx Depression: No Family Medical History - Family History Mother Living Status: Hx Family Stroke: Yes Physical Exam - Physical Exam General Appearance: Alert, Comfortable, Well Developed, Well Groomed Neck: normal inspection, trachea midline Respiratory: no respiratory distress, no accessory muscle use, rhonchi Cardiovascular/Chest: regular rate, rhythm, no edema Skin Exam: normal color, other - NO CYANOSIS OR CLUBBING Departure - Departure Clinical Impression: COVID-19 Time of Disposition: 12:24 Disposition: Discharge to Home or Self Care Condition: Good Departure Forms: ED Discharge - Pt. Copy, Patient Portal Self Enrollment Referrals: Taras Lentz III, MD [Primary Care Provider] - 1-2 Weeks Prescriptions: Benzonatate Perles [Tessalon Perles] 200 mg PO TID PRN #15 cap PRN Reason: Cough Home Medications: Ambulatory Orders Aspirin [Baby Aspirin] 81 mg PO DAILY 09/01/14 Metformin HCl [Metformin Hydrochloride] 500 mg PO BID 09/01/14 Apixaban [Eliquis] 5 mg PO BID 05/07/15 Allopurinol [Zyloprim] 100 mg PO DAILY 02/17/20 Azithromycin 500 mg PO DAILY #5 tab 02/17/20 Empagliflozin [Jardiance] 25 mg PO DAILY 02/17/20 Oxybutynin Chloride 5 mg PO DAILY 02/17/20 Pravastatin Sodium 40 mg PO DAILY 02/17/20 Tamsulosin HCl [Flomax] 0.4 mg PO DAILY 02/17/20 predniSONE [Prednisone] 20 mg PO DAILY #5 tab 02/17/20 Benzonatate Perles [Tessalon Perles] 200 mg PO TID PRN #15 cap 02/24/20 Additional Instructions: PLEASE FOLLOW UP WITH YOUR PCP DAILY THRU VIDEO CALL. RETURN TO THE ER IF YOUR O2 SATURATION IS BELOW 90% ON ROOM AIR.
--- NOTE | 2020-02-24 11:30 | RAD ---
EXAM DESCRIPTION: Chest,1 View CLINICAL HISTORY: 74 years Male, COVID-19 COMPARISON: 02/17/2020 TECHNIQUE: Single view radiograph of the chest. IMPRESSION: Enlarged cardiac silhouette. Prior sternotomy. Partially calcified aorta. Improved but residual mild left greater than right airspace opacification in the mid to lower lungs probably representing residual infection. No pleural effusion or pneumothorax. Thoracic spondylosis. Electronically signed by: Pratik Hernandez MD 02/24/2020 11:28 AM [facility]
[2020-02-24 13:40] VITALS: TEMP 98.3
[2020-02-24 13:41] VITALS: BP 143/84; O2SAT 96
== END 2020-02-24 12:15 | disposition home or self-care (01) ==
LOC: ER 10:29
DX: U07.1 COVID-19 (principal); I25.10 Atherosclerotic heart disease of native coronary artery without angina pectoris; I10 Essential (primary) hypertension; E11.9 Type 2 diabetes mellitus without complications; K21.9 Gastro-esophageal reflux disease without esophagitis; Z95.1 Presence of aortocoronary bypass graft; Z79.899 Other long term (current) drug therapy; Z79.01 Long term (current) use of anticoagulants; Z79.82 Long term (current) use of aspirin; Z79.84 Long term (current) use of oral hypoglycemic drugs